=== PATIENT | female | born 1995 | race Two or more races ===

== ENCOUNTER 2017-06-02 16:27 | Emergency (ER) | payer MEDICAID ==
[~2017-06-02] VITALS: Ht 157.5 cm; Wt 49.9 kg
[~2017-06-02 16:27] MED LIST: IBUPROFEN600 MG ORAL; IBUPROFEN600 MG PO; NKM
--- NOTE | 2017-06-02 16:45 | Emergency Room Report ---
History of Present Illness General Chief Complaint: Pain Source: Patient Present Illness HPI Is a 21-year-old female presented after increased the left great toe pain. Patient reported having recent trauma in which she struck her left toe onto a door way. She reported having increased pain to the great toe. She noticed having some increased swelling as well as redness. The patient presented for further evaluation and treatment. She denies any fever. She denies being . She denies any numbness to the toe. Pain is throbbing in nature Allergies: Coded Allergies: No Known Allergies (Unverified , 06/11/12) Patient History Past Medical History: see triage record Last Menstrual Period: 05/26/17 Reviewed Nursing Documentation: PMH: Agreed, PSxH: Agreed Nursing Documentation-PMH Past Medical History: No Stated History Hx Hypertension: No Hx Asthma: No Hx Diabetes: No Review of Systems All Other Systems: negative except mentioned in HPI Physical Exam Vital Signs Date Time Temp Pulse Resp B/P (MAP) Pulse Ox O2 Delivery O2 Flow Rate FiO2 06/02/17 16:37 98.1 71 18 114/70 99 Room Air General Appearance: well appearing, no apparent distress, alert, GCS 15 Head: normocephalic, atraumatic ENT: hearing grossly normal, normal voice Neck: full range of motion, supple Respiratory: no respiratory distress, speaking full sentences Gastrointestinal: normal inspection Musculoskeletal: no calf tenderness, swelling - left great toenail inflammation to lateral nailfold, slight discharge Neurologic: normal gait Psychiatric: mood/affect normal Skin: other - erythema to lateral nailfold of left great toe Medical Decision Making Diagnostic Impression: Primary Impression: Ingrown left big toenail ER Course Patient presented for toe pain. Differential diagnosis included wasn't limited to osteomyelitis, fracture, ingrown toenail, contusion, gouty arthritis among others. Patient was given ibuprofen for painThe patient is advised to followup with podiatry for further evaluation possible toenail removal if worse. Other X-Ray Diagnostic Results Other X-Ray Diagnostic Results : # of Views/Limited Vs Complete: 3 View Indication: Pain EP Interpretation: Yes Interpretation: no dislocation, no fractures, other - soft tissue swelling Impression: No acute disease - soft tissue swelling Electronically Signed by: Electronically signed by Dr. Solomon Diggs M.D. Last Vital Signs Date Time Temp Pulse Resp B/P (MAP) Pulse Ox O2 Delivery O2 Flow Rate FiO2 9/30/17 16:37 98.1 71 18 114/70 99 Room Air Status: improved Disposition: HOME, SELF-CARE Condition: Stable Scripts Cephalexin* (KEFLEX*) 500 Mg Capsule 500 MG ORAL Q6H, #28 CAP 0 Refills Prov: Solomon Diggs 06/02/17 Ibuprofen* (MOTRIN*) 600 Mg Tablet 600 MG ORAL Q8H Y for For Pain, #30 TAB 0 Refills Prov: Solomon Diggs 06/02/17 Solomon Diggs Jun 02, 2017 16:45
[2017-06-02] MEDS ORDERED: IBUPROFEN600 MG ORAL (16:46)
[2017-06-02] MEDS ORDERED: KEFLEX500 MG ORAL (16:46)
[2017-06-02 17:10] VITALS: BP 107/85
--- NOTE | 2017-06-03 09:26 | Diagnostic Imaging Report ---
Indication: Pain left foot first toe, status post injury Comparison: None Findings: 3 views of the left foot first toe shows no fractures or dislocations. Bony mineralization is normal. No bony destructive lesions are seen. Soft tissues are unremarkable. No soft tissue gas. Impression: No fracture or dislocation of the left foot first toe.
== END 2017-06-02 17:10 | disposition home or self-care (01) ==
LOC: EMR 16:58
DX: L60.0 Ingrowing nail (principal)
CPT/HCPCS: 99283

== ENCOUNTER 2019-07-26 11:36 | Emergency (ER) | payer MEDICAID, OTHER ==
[~2019-07-26] VITALS: Ht 160 cm; Wt 56.7 kg
[~2019-07-26 11:36] MED LIST changes: +KEFLEX500 MG ORAL
[2019-07-26 11:52] VITALS: BP 107/76
--- NOTE | 2019-07-26 11:52 | NUR ---
ED Nurse Note: Patient walked in to ER from home with family members due to N/V/D x3 days. pt aao x4 and ambulatory but fatigue noted. calm and cooperative. not vomiting at this moment. pt reported last vomit with this morning at home and undigested food noted. no cardiac or pulmonary distress noted at this time. pt provided yellow and small amount of urine sample. pt is in gown.
--- NOTE | 2019-07-26 12:02 | NUR ---
ED Nurse Note: Urine sample sent to lab.
--- NOTE | 2019-07-26 12:41 | NUR ---
ED Nurse Note: lab called
[2019-07-26] MEDS ORDERED: GI Cocktail 50 ML LIQD ORAL ONE (12:45)
--- NOTE | 2019-07-26 12:51 | Emergency Room Report ---
History of Present Illness General Chief Complaint: Abdominal Pain Source: Patient Present Illness HPI Patient is a 24-year-old female presents after increased epigastric abdominal pain. She reports having multiple episodes of vomiting as well as watery diarrhea. Increased burning sensation to the epigastric area. This did not radiate to her back. She had recently increased cramping. Denies any fever. She had not been drinking alcohol or using any drugs. She had not been having any improvement after taking a pill of Prilosec. Allergies: Coded Allergies: No Known Allergies (Unverified , 06/11/12) Patient History Past Medical History: see triage record Last Menstrual Period: Reviewed Nursing Documentation: PMH: Agreed; PSxH: Agreed Nursing Documentation-PMH Past Medical History: No Stated History Hx Hypertension: No Hx Asthma: No Hx Diabetes: No Review of Systems All Other Systems: negative except mentioned in HPI Physical Exam Vital Signs Date Time Temp Pulse Resp B/P (MAP) Pulse Ox O2 Delivery O2 Flow Rate FiO2 07/26/19 11:43 98.6 102 16 107/76 (86) 99 Room Air Sp02 EP Interpretation: reviewed, normal General Appearance: normal inspection, well appearing, no apparent distress, alert, GCS 15 Head: atraumatic ENT: normal ENT inspection, hearing grossly normal, normal voice Neck: normal inspection, full range of motion, supple, no bony tend Respiratory: normal inspection, lungs clear, normal breath sounds, no respiratory distress, no retraction, no wheezing Cardiovascular #1: regular rate, rhythm, no edema Gastrointestinal: normal inspection, normal bowel sounds, non tender, soft, no guarding, no hernia Genitourinary: no CVA tenderness Musculoskeletal: normal inspection, back normal, normal range of motion Neurologic: alert, motor strength/tone normal, infantry officer III-XII nml as tested, oriented x3, responsive, speech normal, normal inspection Psychiatric: normal inspection, judgement/insight normal, mood/affect normal Medical Decision Making ER Course Patient presented for epigastric pain. Differential diagnosis include was not limited to gastritis, gastroenteritis, , bacterial enteritis among others. Patient has a benign exam and does not appear to require any imaging or laboratory testing at this time. Urine test was ordered due to patient's abdominal discomfort. she did not appear to have any evidence of acute toxicity. The patient symptoms appear to be consistent with viral gastroenteritis.She appears to be well-hydrated. Last Vital Signs Date Time Temp Pulse Resp B/P (MAP) Pulse Ox O2 Delivery O2 Flow Rate FiO2 07/26/19 11:52 98.6 87 16 107/76 99 Room Air Referrals: [facility],REFERRING (PCP) Solomon Diggs MD Jul 26, 2019 12:51
[2019-07-26] MEDS ORDERED: DICYCLOMINE HCL10 MG ORAL (12:52)
[2019-07-26] MEDS ORDERED: PRILOSEC OTC20 MG ORAL (12:52)
[2019-07-26 12:58] LABS: APPEARANCE,URINE SLIGHTLY CLOUDY; BILIRUBIN, URINE 1+ (NEGATIVE); GLUCOSE, URINE (UA) NEGATIVE (NEGATIVE); KETONES,URINE 3+ (NEGATIVE); LEUKOCYTE ESTERASE ,URINE 1+ (NEGATIVE); NITRITE,URINE NEGATIVE (NEGATIVE); PH,URINE 6 (4.5-8.0); PROTEIN,URINE 2+ (NEGATIVE); UROBILINOGEN,URINE 4 MG/DL (0.0-1.0)
[2019-07-26 13:03] LABS: COLOR,URINE YELLOW
[2019-07-26] MEDS ORDERED: CEPHALEXIN500 MG ORAL (13:18)
[2019-07-26 13:26] VITALS: BP 111/71
--- NOTE | 2019-07-26 13:26 | NUR ---
ER DISCHARGE NOTE: Patient is cleared to be discharged per ERMD, pt is aox4, on room air, with stable vital signs. pt was given dc and prescription instructions, pt was able to verbalize understanding, pt id band removed without complications. pt is able to ambulate with steady gait. pt took all belongings.
== END 2019-07-26 13:26 | disposition home or self-care (01) ==
LOC: EMR 12:40
DX: R10.13 Epigastric pain (principal); R11.10 Vomiting, unspecified; R19.7 Diarrhea, unspecified
CPT/HCPCS: 81003; 81025; Z7502; 99283